=== PATIENT | female | born 1955 | race Caucasian/White ===

== ENCOUNTER 2016-08-08 06:20 | Outpatient (CLI) | END 2016-08-08 06:21 | LOC: AMBL 06:20 | PROVIDERS: ATTEND Family Medicine | DX: I10 Essential (primary) hypertension (principal); T50.905A Adverse effect of unspecified drugs, medicaments and biological substances, initial encounter ==

== ENCOUNTER 2016-08-18 09:34 | Outpatient (CLI) | END 2016-08-18 09:35 | disposition home or self-care (01) | LOC: AMBL 09:34 | PROVIDERS: ATTEND Family Medicine | DX: R06.4 Hyperventilation (principal); F41.0 Panic disorder [episodic paroxysmal anxiety]; R20.0 Anesthesia of skin ==